=== PATIENT | male | born 1970 | race African-American/Black ===

== ENCOUNTER 2017-01-17 06:05 | Day surgery (SDC) | payer OTHER ==
[~2017-01-17] VITALS: Ht 190.5 cm; Wt 83.9 kg
[2017-01-17] MEDS ORDERED: PROPOFOL 10 MG/ML 20 ML IV ONE ×2 (06:57→08:19)
[2017-01-17] MEDS ORDERED: fentaNYL CITRATE 100 MCG/2 ML VL ONE (06:57)
[2017-01-17] MEDS ORDERED: SODIUM CHLORIDE LOCK 20 ML ONE (06:57)
[2017-01-17] MEDS ORDERED: MIDAZOLAM HCL 1MG/1ML-2 ML VIAL ONE (06:57)
[2017-01-17] MEDS ORDERED: ceFAZolin 1GM/50ML D5W 50 ML IV ONE (07:05)
[2017-01-17 07:26] LABS: INR 0.94 (0.9-1.15); Partial Thromboplastin Time 27.6 sec (22.64-33.71); Prothrombin Time 10.2 sec (9.37-12.3)
[2017-01-17 07:32] LABS: BUN/Creatinine Ratio 15.2; Calcium 8.8 mg/dL (8.5-10.1); Potassium 3.7 mmol/L (3.5-5.1)
[2017-01-17 07:42] LABS: Basophils # (auto) 0.1 uL; Basophils % (auto) 2.2 % (0.0-2.0); Eosinophils # (auto) 0.3 uL; Eosinophils % (auto) 4.7 % (0.0-7.0); Hematocrit 42.8 % (41.0-53.0); Hemoglobin 14.4 g/dL (13.5-17.5); Lymphocytes % (auto) 32.4 % (10.0-50.0); Mean Corpuscular Hemoglobin 28.6 pg (28.0-32.0); Mean Corpuscular Hgb Conc. 33.6 g/dL (32.0-36.0); Mean Corpuscular Volume 85.1 fL (80.0-100.0); Mean Platelet Volume 7.6 fL (6.9-10.8); Monocytes # (auto) 0.5 uL; Monocytes % (auto) 7.6 % (0.0-12.0); Neutrophils # (auto) 3.3 uL; Neutrophils % (auto) 53.1 % (37.0-80.0); Platelet Count (auto) 254 10^3/uL (140-450); Red Cell Distribution Width 13.6 % (11.8-14.3); White Blood Cell 6.2 10^3/uL (4.4-10.8)
[2017-01-17] MEDS ORDERED: ONDANSETRON HCL 4 MG/2 ML VIAL IV ONE (07:59)
[2017-01-17] MEDS ORDERED: KETOROLAC TROMETH 30 MG/ML 1ML VIAL IV ONE (08:00)
[2017-01-17] MEDS ORDERED: METOCLOPRAMIDE HCL 5MG/ml INJ 2ml VIAL IV ONE (08:00)
[2017-01-17] MEDS ORDERED: HYDROmorphone HCL 2 MG/ML VL IV PRN (08:00)
[2017-01-17] MEDS ORDERED: BUPIVACAINE 0.75% INJ 10ML MPV SDV IJ ONE ×2 (08:17)
[2017-01-17 09:46] VITALS: BP 118/72
== END 2017-01-17 09:56 | disposition home or self-care (01) ==
LOC: SUR 06:05
PROVIDERS: ATTEND Podiatrist Foot & Ankle Surgery
DX: M21.622 Bunionette of left foot (principal); M20.12 Hallux valgus (acquired), left foot; M20.5X2 Other deformities of toe(s) (acquired), left foot
CPT/HCPCS: 28110; 28285; 28296; 36415; 73620; 76000; 80048; 85025; 85610; 85730; 88304; 88311; C1713; C1769; J0690; J2250; J2405; J2704; J3010; J3490; L3260; V2790

== ENCOUNTER 2017-03-21 06:08 | Day surgery (SDC) | payer OTHER ==
[2017-03-20 14:47] LABS: Basophils # (auto) 0.1 uL; Basophils % (auto) 1.4 % (0.0-2.0); Eosinophils # (auto) 0.3 uL; Eosinophils % (auto) 2.5 % (0.0-7.0); Hematocrit 42.8 % (41.0-53.0); Hemoglobin 14.1 g/dL (13.5-17.5); Lymphocytes # (auto) 2.6 uL; Lymphocytes % (auto) 25.8 % (10.0-50.0); Mean Corpuscular Hemoglobin 27.9 pg (28.0-32.0); Mean Corpuscular Hgb Conc. 32.9 g/dL (32.0-36.0); Mean Corpuscular Volume 84.6 fL (80.0-100.0); Mean Platelet Volume 7.7 fL (6.9-10.8); Monocytes # (auto) 0.6 uL; Monocytes % (auto) 5.7 % (0.0-12.0); Neutrophils # (auto) 6.5 uL; Neutrophils % (auto) 64.6 % (37.0-80.0); Nucleated Red Blood Cells % 0.1 %; Platelet Count (auto) 276 10^3/uL (140-450); Red Cell Distribution Width 13.4 % (11.8-14.3)
[2017-03-20 15:02] LABS: INR 0.95 (0.9-1.15); Partial Thromboplastin Time 28.5 sec (22.64-33.71); Prothrombin Time 10.3 sec (9.37-12.3)
[2017-03-20 15:09] LABS: Albumin 3.9 g/dL (3.4-5.0); Bilirubin, Total 0.8 mg/dL (0.2-1.0); Calcium 8.9 mg/dL (8.5-10.1); Potassium 3.7 mmol/L (3.5-5.1); Total Protein 7.7 g/dL (6.4-8.2)
[~2017-03-21] VITALS: Ht 188 cm; Wt 86.2 kg
[~2017-03-21 06:08] MED LIST: CELE100C82 PO; FEXO-42 PO; OMEP20CA74 PO
[2017-03-21] MEDS ORDERED: ceFAZolin 1GM/50ML 50 ML IV ONE (06:34)
[2017-03-21] MEDS ORDERED: ceFAZolin 1GM VL ONE (07:08)
[2017-03-21] MEDS ORDERED: NEOMYCIN-BACITRACIN-POLYM 15GM TOP OINT TOP ONE (07:09)
[2017-03-21] MEDS ORDERED: BUPIVACAINE 0.75% INJ 10ML MPV SDV IJ ONE ×2 (07:09→08:22)
[2017-03-21] MEDS ORDERED: MIDAZOLAM HCL 1MG/1ML-2 ML VIAL ONE (07:43)
[2017-03-21] MEDS ORDERED: MEPERIDINE HCL (50 MG/ML) 1 ML VIAL ONE (07:43)
[2017-03-21] MEDS ORDERED: fentaNYL CITRATE 100 MCG/2 ML VL ONE (07:43)
[2017-03-21] MEDS ORDERED: DEXAMETHASONE SOD PHOS 10MG/1ML VIAL INJ ONE (08:02)
[2017-03-21] MEDS ORDERED: KETOROLAC TROMETH 30 MG/ML 1ML VIAL ONE (08:53)
[2017-03-21] MEDS ORDERED: PROPOFOL 10 MG/ML 20 ML IV ONE (08:53)
[2017-03-21] MEDS ORDERED: ePHEDrine SULFATE 50 MG/ML AMP IV PRN (09:45)
[2017-03-21] MEDS ORDERED: KETOROLAC TROMETH 30 MG/ML 1ML VIAL IV ONE (09:45)
[2017-03-21] MEDS ORDERED: HYDROmorphone HCL 2 MG/ML VL IV PRN (09:45)
[2017-03-21] MEDS ORDERED: MIDAZOLAM HCL 1MG/1ML-2 ML VIAL IV PRN (09:45)
[2017-03-21] MEDS ORDERED: LABETALOL HCL 5 MG/ML 4ML SYRINGE IV PRN (09:45)
[2017-03-21] MEDS ORDERED: ONDANSETRON HCL 4 MG/2 ML VIAL IV ONE (09:45)
[2017-03-21 10:11] VITALS: BP 122/84
== END 2017-03-21 10:16 | disposition home or self-care (01) ==
LOC: SUR 06:08
PROVIDERS: ATTEND Podiatrist Foot & Ankle Surgery
DX: M20.41 Other hammer toe(s) (acquired), right foot (principal); M20.11 Hallux valgus (acquired), right foot; M21.621 Bunionette of right foot; M21.611 Bunion of right foot; D69.6 Thrombocytopenia, unspecified; F17.210 Nicotine dependence, cigarettes, uncomplicated
CPT/HCPCS: 28110; 28285; 28296; 36415; 73620; 76000; 80053; 85025; 85610; 85730; C1713; J0690; J1100; J1885; J2175; J2250; J2704; J3010; J3490; J7040; L3260; Q4137